=== PATIENT | male | born 1985 | race Two or more races ===

== ENCOUNTER 2017-11-14 04:23 | Emergency (ER) | payer SELFPAY ==
[~2017-11-14] VITALS: Ht 167.6 cm; Wt 61.2 kg
[2017-11-14 06:09] LABS: Amphetamine Screen, Urine NEGATIVE (NEGATIVE); Barbiturate Scree,Urine NEGATIVE (NEGATIVE); Benzodiazephine Screen, Urine NEGATIVE (NEGATIVE); Cocaine Screen, Urine NEGATIVE (NEGATIVE); Opiate Scree,Urine NEGATIVE (NEGATIVE); Phencyclidine Screen, Urine NEGATIVE (NEGATIVE)
[2017-11-14 06:19] LABS: Cannabinoid Screen, Urine POSITIVE (NEGATIVE)
[2017-11-14 06:50] VITALS: BP 137/89
== END 2017-11-14 09:01 | disposition home or self-care (01) ==
LOC: ER 04:28
DX: F41.9 Anxiety disorder, unspecified (principal); F12.10 Cannabis abuse, uncomplicated
CPT/HCPCS: 80307

== ENCOUNTER 2022-03-23 05:01 | Emergency (ER) | payer MEDICAID, OTHER ==
[~2022-03-23] VITALS: Ht 167.6 cm; Wt 122.7 kg
[2022-03-23 05:15] VITALS: BP 140/89
[2022-03-23] MEDS ORDERED: KETOROLAC TROMETH 30 MG/ML 1ML VIAL IM ONE (07:00)
[2022-03-23] MEDS ORDERED: ACET1CAP14 PO (07:08)
[2022-03-23] MEDS ORDERED: ACETAMINOPHEN/CODEINE#3 (300/30mg) TAB PO ONE (07:15)
[2022-03-23] MEDS ORDERED: ACETAMINOPHEN 500 MG TAB PO ONE (07:30)
[2022-03-26] MEDS ORDERED: HYDR50CA PO (09:51)
== END 2022-03-23 07:10 | disposition home or self-care (01) ==
LOC: ER 05:01
DX: K08.89 Other specified disorders of teeth and supporting structures (principal); F12.10 Cannabis abuse, uncomplicated; Z88.0 Allergy status to penicillin; Z88.6 Allergy status to analgesic agent

== ENCOUNTER 2022-03-25 10:23 | Emergency (ER) | payer MEDICAID ==
[~2022-03-25 10:23] MED LIST: ACET1CAP14 PO
[2022-03-26] MEDS ORDERED: HYDR50CA PO (09:51)
== END 2022-03-25 11:40 | disposition left against medical advice (07) ==
LOC: ER 10:23
DX: F41.9 Anxiety disorder, unspecified (principal); Z53.21 Procedure and treatment not carried out due to patient leaving prior to being seen by health care provider

== ENCOUNTER 2022-03-30 09:26 | Emergency (ER) | payer MEDICAID ==
[~2022-03-30] VITALS: Ht 167.6 cm; Wt 79.0 kg
[~2022-03-30 09:26] MED LIST changes: +HYDR50CA PO
[2022-03-30] MEDS ORDERED: LORazepam 0.5 MG TAB PO ONE (11:15)
[2022-03-30 12:18] VITALS: BP 149/83
== END 2022-03-30 11:42 | disposition home or self-care (01) ==
LOC: ER 09:26
DX: F41.9 Anxiety disorder, unspecified (principal); J45.909 Unspecified asthma, uncomplicated; F12.90 Cannabis use, unspecified, uncomplicated
CPT/HCPCS: 93005

== ENCOUNTER → 2022-04-11 05:04 | Emergency (ER) | payer MEDICAID | END | disposition left against medical advice (07) | LOC: ER 05:04 | DX: K08.89 Other specified disorders of teeth and supporting structures (principal); Z53.21 Procedure and treatment not carried out due to patient leaving prior to being seen by health care provider ==

== ENCOUNTER 2023-02-20 02:07 | Emergency (ER) | payer MEDICAID ==
[~2023-02-20] VITALS: Ht 167.6 cm; Wt 110.7 kg
[2023-02-20] MEDS ORDERED: BENZOCAINE (DENTAL) 20 % SPRAY 60ML MT ONE (04:15)
[2023-02-20] MEDS ORDERED: IBUPROFEN 400 MG TAB PO ONE (04:15)
[2023-02-20 04:32] VITALS: BP 127/79; PULSE 100; RESP 16; TEMP 97.7; O2SAT 98
== END 2023-02-20 04:54 | disposition home or self-care (01) ==
LOC: ER 02:07
DX: S02.5XXA Fracture of tooth (traumatic), initial encounter for closed fracture (principal); J45.909 Unspecified asthma, uncomplicated; Z79.899 Other long term (current) drug therapy; Z88.0 Allergy status to penicillin; Z88.8 Allergy status to other drugs, medicaments and biological substances; X58.XXXA Exposure to other specified factors, initial encounter; Y93.89 Activity, other specified; Y92.89 Other specified places as the place of occurrence of the external cause; Y99.8 Other external cause status

== ENCOUNTER 2024-08-20 19:25 | Emergency (ER) | payer MEDICAID ==
[~2024-08-20] VITALS: Ht 165.1 cm; Wt 103.8 kg
[~2024-08-20 19:25] MED LIST changes: +CARB6.5S44 OT; +CLIN1CAP70 PO; +COR10OTS OT; +HYDR-4902 PO; +IBUP-1456 PO
[2024-08-20 20:02] VITALS: BP 155/90; PULSE 90; RESP 20; TEMP 98.4; O2SAT 95
[2024-08-20] MEDS ORDERED: IBUP-1456 PO (20:02)
[2024-08-20] MEDS ORDERED: AMOX875T4 PO (20:02)
--- NOTE | 2024-08-20 20:03 | ED.PDOC ---
Eye-HPI HPI Comments 39-year-old male presents to ER with complaints of toothache x3 days. Patient reports he has been experiencing 8/10 right upper and left lower toothache x3 days. Notes he does have an appointment with a dentist in one week. Denies use of medications for current symptoms and presents to ER ambulatory on arrival, with steady gait, in no distress. Denies fever, headache, facial swelling/skin changes or any further symptoms/complaints Chief Complaint: Tooth Pain Time Seen by MD: 19:34 Primary Care Provider: unknown Reviewed Notes: Nurses Notes, Medications, Allergies Allergies: Coded Allergies: Penicillins (Verified Allergy, Unknown, 09/05/15) Tramadol (Verified Allergy, Unknown, 09/05/15) Home Meds Active Scripts Ibuprofen (Ibuprofen) 800 Mg Tab, 1 TAB PO TID PRN, #30 TAB 0 Refills Prov:IHSAN ASHRAF 08/20/24 Amoxicillin & Pot Clavulanate (Amoxicillin/Potassium Cla) 875 Mg Tab, 1 TAB PO BID for 7 Days, #14 TAB 0 Refills Prov:IHSAN ASHRAF 08/20/24 Ibuprofen (Ibuprofen) 800 Mg Tab, 1 TAB PO TID, #30 TAB Prov:CRAIG SOMERS 06/03/23 Clindamycin Hcl (Clindamycin Hcl) 300 Mg Cap, 1 CAP PO QID for 10 Days, #40 CAP Prov:CRAIG SOMERS 06/03/23 Carbamide Peroxide (Debrox) 6.5 % Mariya, 5 DROP OT BID for 4 Days, #15 ML Prov:CARLOS GIPSON [employer] SAWYER 05/22/23 [id number] (Otic) (Cortisporin Otic Soln) [address], 4 DROP OT QID for 7 Days, #10 ML Prov:CARLOS GIPSON [employer] SAWYER 05/22/23 Hydrocodone-Acetaminophen (Hydrocodone Bitartrate/AC 5-325 mg) 1 Tab Tab, 1 TAB PO Q6HPRN PRN, #4 TAB as needed for pain Prov:PHILIP BUTTS Q [employer]AT[employer] SPECIALIST 05/21/23 Hydroxyzine Pamoate (Vistaril) 50 Mg Cap, 50 MG PO QHSP PRN, #24 CAP Prov:CRAIG SOMERS 03/26/22 Acetaminophen (Tylenol) 325 Mg Cap, 325 MG PO Q4HPRN PRN, #30 CAP 0 Refills Take 1-2 caps po q4h prn for pain/fever Prov:JEY SCHERER [employer] SAWYER 03/23/22 Information Source: Patient Mode of Arrival: Ambulatory Past Medical History PAST MEDICAL HISTORY: Anxiety, Asthma Surgical History: Denies all surgeries Family History Family History: Unknown Social History Smoker: Cigarettes, Less Than 1 Pack/Day Alcohol: Occasionally Drugs: Marijuana Lives In: Home Constitutional: denies: chills, diaphoresis, fatigue, fever, malaise, sweats, weakness, others EENTM: reports: others (As stated in HPI) Respiratory: denies: cough, hemoptysis, orthopnea, SOB at rest, shortness of breath, SOB with excertion, stridor, wheezing, others Cardiovascular: denies: chest pain, dizzy spells, diaphoresis, Dyspnea on exertion, edema, irregular heart beat, left arm pain, lightheadedness, palpitations, PND, syncope, others Gastrointestinal: denies: abdomen distended, abdominal pain, blood streaked bowels, constipated, diarrhea, dysphagia, difficulty swallowing, hematemesis, melena, nausea, poor appetite, poor fluid intake, rectal bleeding, rectal pain, vomiting, others Genitourinary: denies: burning, dysuria, flank pain, frequency, hematuria, incontinence, penile discharge, penile sore, pain, testicle pain, testicle swelling, urgency, others Neurological: denies: dizziness, fainting, headache, left sided numbness, left sided weakness, numbness, paresthesia, pre-existing deficit, right sided numbness, right sided weakness, seizure, speech problems, tingling, tremors, weakness, others Musculoskeletal: denies: back pain, gout, joint pain, joint swelling, muscle pain, muscle stiffness, neck pain, others Integumetry: denies: bruises, change in color, change in hair/nails, dryness, laceration, lesions, lumps, rash, wounds, others Allergic/Immunocompromised: denies: Difficulty Healing, Frequent Infections, Hives, Itching, others Hematologic/Lymphatic: denies: anemia, blood clots, easy bleeding, easy bruising, swollen glands, others Endocrine: denies: excessive hunger, excessive sweating, excessive thirst, excessive urination, flushing, intolerance to cold, intolerance to heat, unexplained weight gain, unexplained weight loss, others Psychiatric: denies: anxiety, bipolar disorder, depression, hopeless, panic disorder, schizophrenia, sleepless, suicidal, others Physical Exam General Appearance: No Apparent Distress HEENT: PERRL/EOMI, Pharynx Normal, TMs Normal, Other (Mild swelling/erythema no lesly surrounding gums of right upper 1st molar tooth. Broken left lower 1st molar tooth also noted with mild swelling/erythema to surrounding gums. No facial swelling/skin changes noted) Neck: Full Range of Motion, Non-Tender, Normal Respiratory: Chest Non-Tender, Lungs Clear, No Accessory Muscle Use, No Respiratory Distress, Normal Breath Sounds Cardiovascular: No Murmur, No Gallop, Regular Rate/Rhythm Breast Exam: Deferred Gastrointestinal: NOT DONE Genitalia: Deferred Pelvic: Deferred Rectal: Deferred Extremities: Normal capillary refill, Normal range of motion Neurologic: Alert, No Motor Deficits, Normal Affect, Normal Mood, No Sensory Deficits Cerebellar Function: Normal Reflexes: Normal Skin: Dry, Normal Color, Warm Peripheral Pulses: 2+ Radial (R), 2+ Radial (L), 2+ Brachial (R), 2+ Brachial (L) Lymphatic: No Adenopathy Was a procedure done? Was a procedure done?: No Sedation Sedation?: No EENT DIFF Eye: N/A Mouth: Thrush, Other (Dental abscess, Edwar's angina) X-Ray, Labs, Meds, VS Vital Signs Date Time Temp Pulse Resp B/P (MAP) Pulse Ox O2 Delivery O2 Flow Rate FiO2 08/20/24 20:02 98.4 90 16 155/90 (111) 95 98.4 08/20/24 20:02 98.4 90 16 155/90 (111) 95 98.4 08/20/24 20:02 20 95 Room Air* 0 21 Smoking/cannabis cessation discussed and advised Advised to follow up with PCP and dentist in 1-2 days Patient verbalized understanding and agreeable with current plan of care Advised to return to ER immediately if symptoms worsen Time of 1ST Reevaluation: 19:44 Reevaluation 1ST: N/A Patient Education/Counseling: Diagnosis, Treatment, Prognosis, Need For Follow Up Family Education/Counseling: No Family Present SEPSIS Sepsis Screen Vital Signs Date Time Temp Pulse Resp B/P (MAP) Pulse Ox O2 Delivery O2 Flow Rate FiO2 08/20/24 20:02 98.4 90 16 155/90 (111) 95 98.4 08/20/24 20:02 98.4 90 16 155/90 (111) 95 98.4 08/20/24 20:02 20 95 Room Air* 0 21 Departure 1 Departure Time of Disposition: 20:02 Impression: Primary Impression: Dental infection Disposition: HOME / SELF CARE / HOMELESS Condition: Stable e-Prescriptions Ibuprofen (Ibuprofen) 800 Mg Tab 1 TAB PO TID PRN, #30 TAB 0 Refills Prov: IHSAN ASHRAF 08/20/24 Amoxicillin & Pot Clavulanate (Amoxicillin/Potassium Cla) 875 Mg Tab 1 TAB PO BID for 7 Days, #14 TAB 0 Refills Prov: IHSAN ASHRAF 08/20/24 Discharged With: Self Critical Care Note Critical Care Time?: No Stability Stability form required: No Heart Score Heart Score: Heart Score Response (Comments) Value History N/A 0 EKG N/A 0 Age N/A 0 Risk Factors N/A 0 Troponin N/A 0 Total 0 IHSAN ASHRAF Aug 20, 2024 20:02
== END 2024-08-20 20:45 | disposition home or self-care (01) ==
LOC: ER 19:25
DX: K04.7 Periapical abscess without sinus (principal); F17.210 Nicotine dependence, cigarettes, uncomplicated; F12.90 Cannabis use, unspecified, uncomplicated; F10.90 Alcohol use, unspecified, uncomplicated; F41.9 Anxiety disorder, unspecified; J45.909 Unspecified asthma, uncomplicated; Z88.5 Allergy status to narcotic agent; Z88.0 Allergy status to penicillin; Z79.1 Long term (current) use of non-steroidal anti-inflammatories (NSAID); Z79.899 Other long term (current) drug therapy; Y90.9 Presence of alcohol in blood, level not specified